=== PATIENT | female | born 1995 | race Caucasian/White ===

== ENCOUNTER 2017-04-27 21:25 | Emergency (ER) | payer OTHER ==
--- NOTE | 2017-04-28 00:59 | ER Document Report ---
ED General - General Chief Complaint: Vaginal Pain Stated Complaint: VAGINAL AND ABDOMINAL PAIN Time Seen by Provider: 04/28/17 00:58 Notes: Patient is a 21-year-old female presents with complaint of pelvic pain. She has a NuvaRing. She had in while she was having sex earlier tonight. She started having pain and cramping and therefore remove the ring. She still had some cramping some but is starting to improve. She has had no bleeding. Last menstrual period was 2 weeks ago and was normal. No dysuria. No fevers. No other complaints at this time. TRAVEL OUTSIDE OF THE [place] IN LAST 30 DAYS: No - Related Data Allergies/Adverse Reactions: No Known Allergies Allergy (Verified 04/28/17 00:43) Home Medications: Current Home Medications No Home Medications 04/28/17 [History] Past Medical History - General Last Menstrual Period: 2 weeks ago - Social History Smoking Status: Never Smoker Frequency of alcohol use: None Drug Abuse: None Family History: Reviewed & Not Pertinent Patient has suicidal ideation: No Patient has homicidal ideation: No Renal/ Medical History: Denies: Hx Peritoneal Dialysis Surgical Hx: Negative Review of Systems - Review of Systems Notes: My Normal Review Basic REVIEW OF SYSTEMS: CONSTITUTIONAL : Denies fever, chills, or sweats. Denies recent illness. GASTROINTESTINAL: Denies abdominal pain. Denies nausea, vomiting, or diarrhea. Denies constipation. Last BM: GENITOURINARY: Denies difficulty urinating, painful urination, burning, frequency, or blood in urine. FEMALE GENITOURINARY: Pelvic pain. MUSCULOSKELETAL: Denies neck or back pain or joint pain or swelling. SKIN: Denies rash or skin lesions.lands. NEUROLOGICAL: Denies altered mental status or loss of consciousness. Denies headache. Denies weakness or paralysis or loss of use of either side. Denies problems with gait or speech. Denies sensory or motor loss. ALL OTHER SYSTEMS REVIEWED AND NEGATIVE. Physical Exam - Vital signs Vitals: Temp Pulse Resp BP Pulse Ox 97.5 F 80 20 115/58 L 97 04/27/17 21:31 04/27/17 21:31 04/27/17 21:31 04/27/17 21:31 04/27/17 21:31 - Notes Notes: General Appearance: Well nourished, alert, cooperative, no acute distress, no obvious discomfort. Well-appearing. Vitals: reviewed, See vital signs table. Head: no swelling or tenderness to the head Eyes: PERRL, EOMI, Conjuctiva clear Mouth: No decreasd moisture Lungs: No wheezing, No rales, No rhonci, No accessory muscle use, good air exchange bilaterally. Heart: Normal rate, Regular rythm, No murmur, no rub Abdomen: Normal BS, soft, No rigidity, No abdominal tenderness, No guarding, no rebound, no abdominal masses, no organomegaly Pelvic: Normal external genitalia. No abnormal vaginal discharge. No bruising or redness or swelling in the vaginal vault. Cervix is normal-appearing. No bleeding. Extremities: strength 5/5 in all extremities, good pulses in all extremities, no swelling or tenderness in the extremities, no edema. Skin: warm, dry, appropriate color, no rash Neuro: speech clear, oriented x 3, normal affect, responds appropriately to questions. Course - Re-evaluation Re-evalutation: 04/29/17 00:17 On exam patient had no areas of trauma or injury to the vaginal vault or cervix. Her cramping started to subside. I suspect her cramping was related to having sex with NuvaRing in place and caused pressure against the cervix which most likely created the spasm of her uterus. I informed her that she should speak with her digital commentator about whether or not to continue to use NuvaRing. I encourage her to use other methods of control until she speaks with her digital commentator. Encouraged her to return to ER if she has any bleeding, abnormal discharge, or she feels unwell. Patient agrees with plan will be discharged home. Dictation of this chart was performed using voice recognition software; therefore, there may be some unintended grammatical errors. - Vital Signs Vital signs: Temp Pulse Resp BP Pulse Ox 97.6 F 89 16 106/67 99 04/28/17 03:42 04/28/17 03:42 04/28/17 03:42 04/28/17 03:42 04/28/17 03:42 - Laboratory Laboratory results interpreted by me: 04/28/17 02:00 Urine Ketones TRACE H Discharge - Discharge Clinical Impression: Pelvic pain Condition: Good Disposition: HOME, SELF-CARE Additional Instructions: Please return to the ER immediately if you have heavy vaginal bleeding, fevers, or severe pain. Please hold off on using the Nuva ring until cleared by your digital commentator. Please avoid sexual contact for the next 24 hours.
[2017-04-28 02:28] LABS: AMORPHOUS SEDIMENT,URINE TRACE /HPF; APPEARANCE,URINE CLOUDY; BILIRUBIN,URINE NEGATIVE (NEGATIVE); GLUCOSE, URINE NEGATIVE (NEGATIVE); KETONES,URINE TRACE mg/dL (NEGATIVE); LEUKOCYTE ESTERASE,URINE NEGATIVE (NEGATIVE); NITRITE,URINE NEGATIVE (NEGATIVE); PROTEIN,URINE NEGATIVE (NEGATIVE); URINE SPECIFIC GRAVITY 1.029; UROBILINOGEN,URINE NEGATIVE mg/dL (<2.0)
[2017-04-28] MEDS ORDERED: KETOROLAC TROMETHAMINE 60 MG/2 ML SDV IM ONE (03:30)
[2017-04-28 03:47] VITALS: BP 106/67
[2017-04-28 03:50] LABS: CHLAM PCR NOT DETECTED (NOT DETECT)
== END 2017-04-28 03:47 | disposition home or self-care (01) ==
LOC: ER 21:25
DX: R10.2 Pelvic and perineal pain (principal); R10.9 Unspecified abdominal pain
CPT/HCPCS: 99283; 96372; 87210; 81001; 87491; 87591; J1885